=== PATIENT | female | born 1995 | race Caucasian/White ===

== ENCOUNTER 2016-04-23 21:20 | Emergency (ER) | payer OTHER ==
--- NOTE | ~2016-04-23 | CT71 ---
[facility] A Service [facility] RADIOLOGY TEXT RESULTS PATIENT: FRANCIE OLIVA LOCATION: SED : 93 UNIT #: [id number] AGE: [address]: Elsy Gonzalez SEX: F ORDER DR: [id number] [address] [address] [id number] E MR#: [id number] Acc #: [id number] NAME: FRANCIE OLIVA. : 1995 SEX: F STUDY DATE/TIME: 04/23/2016 21:50 UNIT: SED ROOM: STUDY DESCRIPTION: CT Head Wo Contrast Attending Physician: Elsy Gonzalez Pa-C Ordering Physician: Gabe Myers M.D. Primary Care Physician: Primary Care Physician No MEDICAL IMAGING REPORT This report is preliminary unless electronic signature is present. EXAM Head CT without contrast 04/23/2016 HISTORY Dizziness, nausea and headache status post head trauma 3 days ago, hit head. TECHNIQUE This CT examination was performed with one or more of the following radiation dose reduction techniques: automatic exposure control, adjustment of mA and/or kV according to patient size, and iterative reconstruction. FINDINGS Axial noncontrast images were obtained from the skull base to the vertex. Ventricular size and configuration are normal. There is no evidence of acute infarct or hemorrhage. There are no extraaxial fluid collections. No mass lesion or mass effect is seen. There are no skull fractures. IMPRESSION Normal noncontrast head CT. Dictated by... Miquel Michelle M.D. THIS IS AN ELECTRONICALLY VERIFIED REPORT Miquel Michelle M.D. at 04/24/2016 10:57 AM [facility]/mjs [facility] A [facility] RADIOLOGY TEXT RESULTS PATIENT: FRANCIE OLIVA LOCATION: SED : 93 UNIT #: [id number] AGE: [address]: Elsy Gonzalez SEX: F ORDER DR: TD: 04/24/2016 06:11 JOB #: [id number] MEDICAL IMAGING REPORT
== END 2016-04-23 23:01 | disposition home or self-care (01) ==
LOC: SED 21:20
DX: S09.90XA Unspecified injury of head, initial encounter (principal); S06.0X9A Concussion with loss of consciousness of unspecified duration, initial encounter; X58.XXXA Exposure to other specified factors, initial encounter; Y92.89 Other specified places as the place of occurrence of the external cause
CPT/HCPCS: 70450; 99284